=== PATIENT | female | born 1930 | race Caucasian/White ===

== ENCOUNTER → 2018-07-24 | Outpatient (CLI) | payer MEDICARE, OTHER ==
[~2018-07-24] MED LIST: ALBU8.5H IH; ASPI-1471 PO; BUDE10.25 IH; CHOL500050 PO; DOXA4TAB58 PO; DULO60CA56 PO; FLUT16SP19 NS; ISOS30TA54 PO; LOSA100T75 PO; METO25TA23 PO; MONT10TA PO; NITR0.4T3 SL; OXYGENHOME INH; PROM-110 PO; SUMA50TA34 PO; [UNRECOGNIZED DRUG - CODE] PO
[2018-07-24 15:57] LABS: PLATELET COUNT, AUTOMATED 243 K/uL (150-450)
== END ==
LOC: LAB 15:34
PROVIDERS: ATTEND Internal Medicine
DX: J45.909 Unspecified asthma, uncomplicated (principal); I10 Essential (primary) hypertension; I25.10 Atherosclerotic heart disease of native coronary artery without angina pectoris; K21.9 Gastro-esophageal reflux disease without esophagitis; E03.9 Hypothyroidism, unspecified; M19.90 Unspecified osteoarthritis, unspecified site; E55.9 Vitamin D deficiency, unspecified; E53.8 Deficiency of other specified B group vitamins; I50.9 Heart failure, unspecified
CPT/HCPCS: 36415; 82040; 82247; 82306; 82310; 82374; 82435; 82465; 82565; 82607; 82746; 82947; 83718; 83880; 84075; 84132; 84155; 84295; 84439; 84443; 84450; 84460; 84478; 84520; 85025

== ENCOUNTER → 2018-08-26 | Outpatient (CLI) | payer MEDICARE, OTHER ==
[~2018-08-26] MED LIST changes: +CYA1000 PO; +GABA-547 PO; +ISOS60TA42 PO; +LEVO175T42 PO
--- NOTE | 2018-08-26 14:37 | EKG ---
[place] [facility] [place] NAME: HAYDEN LU : [id number] MR: [id number] V: [id number] EXAM DATE: ORDERING PHYSICIAN: AMOR BERNARD TECHNOLOGIST: CYNTHIA Test Reason : CHEST PAIN Blood Pressure : / mmHG Vent. Rate : 056 BPM Atrial Rate : 056 BPM P-R Int : 210 ms QRS Dur : 100 ms QT Int : 480 ms P-R-T Axes : 065 005 044 degrees QTc Int : 463 ms Sinus bradycardia with 1st degree AV block Otherwise normal ECG No previous ECGs available Confirmed by AMOR BERNARD ([id number]) on 08/26/2018 2:44:50 PM Referred By: MONIQUE Confirmed By:AMOR BERNARD
--- NOTE | 2018-08-26 15:28 | RADIOLOGY IMAGING REPORT ---
FACILITY: [facility] PATIENT NAME: Ariana Fuentes : 1930 MR: [id number] V: [id number] EXAM DATE: ORDERING PHYSICIAN: AMOR BERNARD TECHNOLOGIST: Location: [facility] Patient: Ariana Fuentes : 1930 Visit/Account:[id number] Date of Sevice: 08/26/2018 CHEST PA LAT History: dyspnea FINDINGS: Comparison studies: Comparison radiographs 07/16/2018 Tubes and Lines: None. Lungs and pleura: Well aerated. No evidence of focal consolidation or pleural effusions. Mediastinum: normal. Cardiac silhouette: Heart is mildly enlarged Osseous structures: Anterior cervical fusion hardware again noted mid cervical spine. There is a s liang surgical clip which projects over the right upper lung and is probably in the chest wall. Ther e are several clips projecting along the right lower neck in the expected region of the thyroid. IMPRESSION: Cardiomegaly without radiographic evidence of failure. No acute pathology identified. Report Dictated By: Madan Elizabeth MD at 08/26/2018 3:17 PM Report E-Signed By: Madan Elizabeth MD at 08/26/2018 3:21 PM WSN:[id number]
== END ==
LOC: LAB 13:40
PROVIDERS: ATTEND Internal Medicine
DX: I51.7 Cardiomegaly (principal); I25.10 Atherosclerotic heart disease of native coronary artery without angina pectoris; R06.00 Dyspnea, unspecified; J45.909 Unspecified asthma, uncomplicated
CPT/HCPCS: 71046

== ENCOUNTER 2018-09-09 18:57 | Emergency (ER) | payer MEDICARE, OTHER ==
[2018-09-09] MEDS ORDERED: ACETAMINOPHEN 500 MG TAB PO ONE (19:25)
--- NOTE | 2018-09-09 19:36 | ER Report ---
History and Physical Time Seen By MD: 19:15 Hx. of Stated Complaint: PT REPORTS FALL 2 DAYS AGO. PT COMPLAINT OF PAIN IN LEFT KNEE, HIP, AND SHOULDER. HPI/ROS CHIEF COMPLAINT: Fall with left-sided pain HISTORY OF PRESENT ILLNESS: Patient presents with constant, aching pain in her left hip and left knee. It is nonradiating. Worse with ambulation, relieved with immobilization. This occurred 2 days ago when she took a mechanical fall getting up out of her bed and fell onto the aforementioned structures. She denies LOC. She denies new-onset chest pain, lightheadedness, shortness of breath, no numbness or weakness. REVIEW OF SYSTEMS: Respiratory: No cough, no worsening dyspnea. Cardiovascular: No chest pain, no palpitations. Gastrointestinal: No vomiting, no abdominal pain. Musculoskeletal: Chronic back pain and neck pain. Allergies: Coded Allergies: Penicillins (Verified Allergy, Intermediate, "BREAK OUT", 09/09/18) lisinopril (Verified Allergy, Intermediate, "JAUNDICE ON HANDS", 09/09/18) codeine (Verified Adverse Reaction, Intermediate, "ITCH", 09/09/18) morphine (Verified Adverse Reaction, Intermediate, "ITCH", 09/09/18) sulfamethoxazole (Verified Adverse Reaction, Intermediate, "SEDATION", 09/09/18) trimethoprim (Verified Adverse Reaction, Intermediate, "SEDATION", 09/09/18) Home Meds Active Scripts Gabapentin (GABAPENTIN) 100 Mg Capsule, 1-3 CAP PO TID, #90 CAPSULE 3 Refills Prov:AMOR BERNARD MD 08/26/18 Levothyroxine Sodium (LEVOTHYROXINE SODIUM) 175 Mcg Tablet, 175 MCG PO QDAY, #90 TAB 1 Refill Prov:AMOR BERNARD MD 08/26/18 Isosorbide Mononitrate (ISOSORBIDE MONONITRATE ER) 60 Mg Tab.er.24h, 60 MG PO QDAY, #30 TAB 3 Refills Prov:AMOR BERNARD MD 08/26/18 Reported Medications Cyanocobalamin (Vitamin B-12) (VITAMIN B-12) 1,000 Mcg Tablet, 1000 MCG PO 07/30/18 Oxygen (OXYGEN) Inha, 2 L INH [facility] for oxygen company 07/24/18 Budesonide/Formoterol Fumarate (SYMBICORT 80-4.5 MCG INHALER) 10.2 Gm Hfa.aer.ad, 2 PUFF IH BID 07/24/18 Cholecalciferol (Vitamin D3) (Vitamin D) 50,000 Unit Capsule, 1 CAP PO QWEEK 07/24/18 Fluticasone Prop 50 Mcg Ns (FLONASE 50 MCG NS) 16 Gm [place].susp, 2 SPRAYS NS QDAY PRN for prn, BOT 07/24/18 Albuterol Sulfate 90 Mcg/Act (PROAIR HFA 90 MCG/ACT) 8.5 Gm Hfa.aer.ad, 2 PUFF IH Q4-6H PRN for prn 07/24/18 Sumatriptan Succinate (IMITREX) 50 Mg Tablet, 1 TAB PO ONCE PRN for MIGRAINE 07/24/18 Promethazine Hcl (PROMETHAZINE HCL) 25 Mg Tablet, 1 TAB PO PRN 07/24/18 Nitroglycerin (NITROGLYCERIN) 0.4 Mg Tab.subl, 1 TAB.SL SL Q5MIN PRN for CHEST PAIN 07/24/18 Montelukast Sodium (SINGULAIR) 10 Mg Tablet, 1 TAB PO QDAY 07/24/18 Duloxetine Hcl (CYMBALTA) 60 Mg Capsule.dr, 1 CAP PO QDAY 07/24/18 Losartan Potassium (LOSARTAN POTASSIUM) 100 Mg Tablet, 1 TAB PO QDAY 07/24/18 Metoprolol Succinate (METOPROLOL SUCCINATE) 25 Mg Tab.er.24h, 1 TAB PO QDAY 07/24/18 Aspirin (ASPIR 81) 81 Mg Tablet.dr, 1 TAB PO QDAY 07/24/18 Smoking Status: Never Smoker Constitutional Vital Sign - Last 24 Hours 09/09/18 19:03 Temp 99.0 Pulse 59 Resp 16 B/P (MAP) 165/82 Pulse Ox 96 O2 Delivery Room Air Physical Exam General Appearance: [The patient is alert, has no immediate need for airway protection and no current signs of toxicity.] [ ] Eyes: Pupils equal and round no injection. Respiratory: Chest is non tender, lungs are clear to auscultation. Cardiac: regular rate and rhythm [ ] Gastrointestinal: Abdomen is soft and non tender, ostomy site well-appearing, nontender Musculoskeletal: Neck: Neck is supple and non tender. Patient with some knee joint effusion in the left knee, no warmth or pain out of portion with movement. Past range of motion flexion made about 100. Extensor mechanism is intact. There is tenderness to palpation over the greater trochanter of the left hip. Negative pain with logroll. Patient is able to raise both of her arms up above her head without pain in the shoulder joint. There is no palpable tenderness along the bilateral clavicles or shoulders. Skin: No ecchymoses noted. [ ] DIFFERENTIAL DIAGNOSIS: After history and physical exam differential diagnosis was considered for fracture versus trochanteric bursitis versus contusion versus knee effusion versus dislocation Medical Decision Making ED Course/Re-evaluation ED Course X-rays ordered, Tylenol for pain. X-rays are negative. Patient is able to walk with her walker unassisted and a steady way. Re-evaluation Patient's pain improved. She is comfortable trying to go home and reassess with her primary care next Sunday. Acetaminophen for pain. 4 tablets of oxycodone given to take at night. She is aware of the consequences of these medications and side effects. Decision to Disposition Date: Sep 09, 2018 Decision to Disposition Time: 21:09 Depart Departure Latest Vital Signs Vital Signs Date Time Temp Pulse Resp B/P (MAP) Pulse Ox O2 Delivery O2 Flow Rate FiO2 09/09/18 19:03 99.0 59 16 165/82 96 Room Air Impression: Primary Impression: Contusion, hip Additional Impression: Knee effusion, left Condition: Improved Disposition: HOME OR SELF-CARE Referrals: AMOR BERNARD MD (PCP) New Scripts Oxycodone Hcl/Acetaminophen (PERCOCET 5-325 MG TABLET) 1 Each Tablet 1 EACH PO Q8H PRN for SEVERE PAIN for 3 Days, #4 TAB 0 Refills Prov: HERMAN BRUNSON DO 09/09/18 [flora] No Conflict Check Prov: HERMAN BRUNSON DO 09/09/18 Departure Forms: ER Transition Record, Medications Reconciliation, Patient Portal Information Patient Instructions: Contusion in Adults (DC), Knee Pain (ED) Additional Instructions: You can take an extra Tylenol with each Percocet you take. As we discussed the Percocet that she had risk of falling in for constipation. Please take the Percocet at night. If the pain is not severe than take Tylenol only. Problem Qualifiers Primary Impression: Contusion, hip Encounter type: initial encounter Laterality: left Qualified Codes: S70.02XA - Contusion of left hip, initial encounter HERMAN BRUNSON DO Sep 09, 2018 19:36
--- NOTE | 2018-09-09 20:19 | RADIOLOGY IMAGING REPORT ---
[facility] PATIENT NAME: Ariana Fuentes : 1930 MR: [id number] V: [id number] EXAM DATE: ORDERING PHYSICIAN: HERMAN BRUNSON TECHNOLOGIST: Location: [facility] [place] Patient: Ariana Fuentes : 1930 Visit/Account:[id number] Date of Sevice: 09/09/2018 EXAMINATION: Left knee 3 views HISTORY: Trauma. COMPARISON: None. FINDINGS: 3 views of the left knee were obtained. A lateral view was not obtained. Surgical changes of left TKA. The femoral and tibial components appear well seated and demonstrate no rmal alignment on submitted views. No evidence of periprosthetic fracture. Generalized osteopenia. IMPRESSION: Left TKA with normal alignment. No acute osseous findings. Report Dictated By: Huy Swanson MD at 09/09/2018 8:10 PM Report E-Signed By: Huy Swanson MD at 09/09/2018 8:12 PM WSN:[id number]
--- NOTE | 2018-09-09 20:22 | RADIOLOGY IMAGING REPORT ---
FACILITY: [facility] - [place] PATIENT NAME: Ariana Fuentes : 1930 MR: [id number] V: [id number] EXAM DATE: ORDERING PHYSICIAN: HERMAN BRUNSON TECHNOLOGIST: Location: [facility] [place] Patient: Ariana Fuentes : 1930 Visit/Account:[id number] Date of Sevice: 09/09/2018 EXAMINATION: AP pelvis with 2 views of the left hip HISTORY: Trauma. COMPARISON: None. FINDINGS: Bones of the left hip demonstrate normal alignment. No evidence of acute fracture or dislocation. Moderate degenerative changes at the left hip with superior joint space narrowing and marginal osteop hyte formation. Remainder of the bony pelvis appears radiographically intact. Generalized osteopenia. Normal alignmen t at the right hip with mild chronic degenerative changes. IMPRESSION: 1. No acute osseous findings at the left hip. 2. Osteopenia with moderate degenerative changes at the left hip. Report Dictated By: Huy Swanson MD at 09/09/2018 8:13 PM Report E-Signed By: Huy Swanson MD at 09/09/2018 8:14 PM WSN:[id number]
[2018-09-09 21:00] VITALS: BP 179/74
[2018-09-09] MEDS ORDERED: OXYC-865 PO (21:16)
[2018-09-09] MEDS ORDERED: [UNRECOGNIZED DRUG - REMARK] (21:16)
[2018-09-09] MEDS ORDERED: oxyCODONE/ACETAMIN 5/325MG TH 2 TAB/BOTTLE PO ONE (21:35)
== END 2018-09-09 21:43 | disposition home or self-care (01) ==
LOC: ER 19:22
DX: S70.02XA Contusion of left hip, initial encounter (principal); M25.462 Effusion, left knee
CPT/HCPCS: 73502; 73562; 99284; A9270